=== PATIENT | female | born 1980 | race Caucasian/White ===

== ENCOUNTER 2022-03-21 16:52 | Inpatient (IN) | payer SELFPAY ==
[~2022-03-21 16:52] MED LIST: Iopamidol 370 76% 100 ML VIAL ONE
[2022-03-21 17:48] LABS: #Basophils 0.1 10x3/uL (0.0-0.2); #Monocytes 0.8 10x3/uL (0.0-1.1); #Neutrophils 4.7 10x3/uL (1.5-8.4); %Basophils 0.7 % (0.0-2.0); %Eosinophils 0.5 % (0.0-6.0); %Lymphocytes 23.5 % (18.0-47.0); %Monocytes 10.6 % (0.0-10.0); %Neutrophils 64.4 % (40.0-75.0); Hemoglobin 13.7 g/dL (12.0-15.5); Mean Corpuscular HGB CONC 34.9 g/dL (32.0-36.0); Mean Corpuscular Hemoglobin 29.3 pg (27.0-33.0); Mean Corpuscular Volume 84.2 fl (81.6-98.3); Mean Platelet Volume 10.3 fl (7.4-10.4); Platelet Count 301 10x3/uL (150-450); RBC Distribution Width 12.6 % (11.5-14.5); Red Blood Cell (RBC) Count 4.67 10x6/uL (3.90-5.03); White Blood Cell (WBC) Count 7.3 10x3/uL (3.5-10.5)
[2022-03-21 18:04] LABS: ALT (SGPT) 57 U/L (8-55); AST (SGOT) 33 U/L (5-34); Albumin 4.3 g/dL (3.5-5.0); Alkaline Phosphatase 81 U/L (40-110); Anion Gap 13 mmol/L (10-20); BUN (Urea Nitrogen) 11 mg/dL (7.0-18.7); Bilirubin, Total 0.7 mg/dL (0.2-1.2); Calc. Creatinine Clearance 0 mL/min (70-130); Calcium 9.4 mg/dL (7.8-10.44); Carbon Dioxide 23 mmol/L (22-29); Chloride 108 mmol/L (98-107); Estimated GFR 95; Globulin 3.3 g/dL (2.4-3.5); Glucose 97 mg/dL (70-105); Lipase 33 U/L (8-78); Potassium 3.5 mmol/L (3.5-5.1); Protein, Total 7.6 g/dL (6.0-8.3); Sodium 140 mmol/L (136-145)
[2022-03-21 18:29] LABS: CKMB 1.9 ng/mL (0-6.6)
[2022-03-21 18:40] LABS: BHCG - Serum Negative (NEGATIVE); Pregs Control Background? CLEAR/WHITE (CLR/WHITE); Pregs Control Bar Appear? YES (CONTROL BAR)
[2022-03-21] MEDS ORDERED: Aspirin Chewable 81 MG TAB ONE (18:53)
[2022-03-21] MEDS ORDERED: Ondansetron PF 4 MG/2 ML Vial ONE (18:53)
[2022-03-21] MEDS ORDERED: Fentanyl 100 MCG/2 ML VIAL ONE (18:54)
[2022-03-21] MEDS ORDERED: Enoxaparin Sodium 80 MG/0.8 ML SYRINGE ONE (18:56)
[2022-03-21] MEDS ORDERED: HYDROcodone/Acetaminophen 5/325 mg Tablet PO PRN (20:22)
[2022-03-21] MEDS ORDERED: Senokot S 8.6-50 MG TAB PO PRN (20:22)
[2022-03-21] MEDS ORDERED: Calcium Carbonate 500 MG ChewTAB PO PRN (20:22)
[2022-03-21] MEDS ORDERED: Acetaminophen 325 MG TAB PO PRN (20:22)
[2022-03-21] MEDS ORDERED: Guaifenesin DM 100-10/5 ML UDCUP PO PRN (20:22)
[2022-03-21] MEDS ORDERED: Zolpidem Tartrate 5 MG TAB PO PRN (20:22)
[2022-03-21] MEDS ORDERED: Ondansetron PF 4 MG/2 ML Vial IVP PRN (20:22)
[2022-03-21] MEDS ORDERED: Nitroglycerin 0.4 MG TAB (25 Tab Bottle) SL PRN (20:24)
[2022-03-21 20:40] LABS: Acetaminophen Less than 10.0 mcg/mL (10.0-30.0); Alcohol Less than 10 mg/dL (Less than 10); Salicylate Less than 8.0 mg/dL (15.0-30.0)
[2022-03-21 21:07] LABS: SARS-CoV-2 NAA Rapid Test Not Detected (NotDetected)
[2022-03-21 22:43] VITALS: BMI 45.4
[2022-03-21] MEDS ORDERED: Prazosin HCl 1 MG CAP PO SCH (23:00)
[2022-03-21] MEDS ORDERED: Metoprolol Tartrate 25 MG TAB PO SCH (23:00)
[2022-03-21] MEDS ORDERED: Lactated Ringer's 1,000 ML IV SCH (23:00)
[2022-03-21] MEDS ORDERED: Famotidine/PF 20 mg/2ml Vial SLOW IVP SCH (23:00)
[2022-03-21] MEDS ORDERED: Lithium Carbonate 150 MG CAP PO SCH (23:00)
[2022-03-21] MEDS: Morphine 2 MG/ML VIAL SLOW IVP PRN (23:26)
[2022-03-22 00:11] LABS: Troponin I 2.383 ng/mL (< 0.028)
[2022-03-22] MEDS ORDERED: FLU VACC QS2022-23(6MOS UP)/PF 60 MCG/0.5 ML SYRINGE IM ONE (01:45)
[2022-03-22 05:32] LABS: #Eosinphils 0.1 10x3/uL (0.0-0.5); #Monocytes 0.7 10x3/uL (0.0-1.1); #Neutrophils 2.8 10x3/uL (1.5-8.4); %Basophils 0.7 % (0.0-2.0); %Eosinophils 1.5 % (0.0-6.0); %Lymphocytes 37.1 % (18.0-47.0); %Neutrophils 48.4 % (40.0-75.0); ALT (SGPT) 47 U/L (8-55); AST (SGOT) 23 U/L (5-34); Albumin 3.6 g/dL (3.5-5.0); Alkaline Phosphatase 65 U/L (40-110); Anion Gap 10 mmol/L (10-20); BUN (Urea Nitrogen) 11 mg/dL (7.0-18.7); Bilirubin, Total 0.6 mg/dL (0.2-1.2); Calc. Creatinine Clearance 252 mL/min (70-130); Calcium 8.7 mg/dL (7.8-10.44); Carbon Dioxide 26 mmol/L (22-29); Cardiac Risk 3.4 (Less than 4.5); Chloride 109 mmol/L (98-107); Cholesterol 99 mg/dl (< 200 Desired); Estimated GFR 101; Globulin 2.8 g/dL (2.4-3.5); Glucose 86 mg/dL (70-105); HDL Cholesterol 29 mg/dL (>60 Neg Risk); LDL Cholesterol, Calculated 60 mg/dL; Mean Corpuscular HGB CONC 34.1 g/dL (32.0-36.0); Mean Corpuscular Hemoglobin 29.3 pg (27.0-33.0); Mean Corpuscular Volume 85.9 fl (81.6-98.3); Mean Platelet Volume 10.4 fl (7.4-10.4); Platelet Count 262 10x3/uL (150-450); Potassium 3.2 mmol/L (3.5-5.1); Protein, Total 6.4 g/dL (6.0-8.3); RBC Distribution Width 12.7 % (11.5-14.5); Sodium 142 mmol/L (136-145); Triglycerides 50 mg/dL (Less than 150); White Blood Cell (WBC) Count 5.8 10x3/uL (3.5-10.5)
[2022-03-22] MEDS: Morphine 2 MG/ML VIAL SLOW IVP PRN ×2 (05:43→17:45)
[2022-03-22] MEDS ORDERED: Potassium Chloride 20 MEQ TAB PO SCH (06:00)
[2022-03-22 06:19] LABS: CKMB 2.2 ng/mL (0-6.6)
[2022-03-22] MEDS ORDERED: Aripiprazole 2 MG TAB PO SCH ×2 (09:00→21:00)
[2022-03-22] MEDS ORDERED: Lithium Carbonate 150 MG CAP PO SCH ×2 (09:00→09:30)
[2022-03-22] MEDS ORDERED: Prazosin HCl 1 MG CAP PO SCH ×2 (09:00→21:00)
[2022-03-22] MEDS: Enoxaparin Sodium 80 MG/0.8 ML SYRINGE SC SCH ×2 (10:29→20:46)
[2022-03-22] MEDS: Metoprolol Tartrate 25 MG TAB PO SCH ×2 (10:32→22:30)
[2022-03-22] MEDS: Aspirin 81 mg Enteric Coated Tablet PO SCH (10:33)
[2022-03-22] MEDS: Famotidine/PF 20 mg/2ml Vial SLOW IVP SCH ×2 (10:33→21:24)
[2022-03-22] MEDS ORDERED: Communication Order-Pharmacy FS SCH (14:45)
[2022-03-23 04:59] LABS: INR-International Normal Ratio 1.1; PTT 26.8 sec (22.0-33.0); Prothrombin Time 11.5 sec (9.5-12.1)
[2022-03-23 05:04] LABS: ALT (SGPT) 39 U/L (8-55); AST (SGOT) 17 U/L (5-34); Albumin 3.9 g/dL (3.5-5.0); Alkaline Phosphatase 68 U/L (40-110); Anion Gap 13 mmol/L (10-20); BUN (Urea Nitrogen) 8 mg/dL (7.0-18.7); Bilirubin, Total 0.7 mg/dL (0.2-1.2); Calc. Creatinine Clearance 262 mL/min (70-130); Carbon Dioxide 22 mmol/L (22-29); Chloride 110 mmol/L (98-107); Estimated GFR 106; Glucose 89 mg/dL (70-105); Potassium 3.7 mmol/L (3.5-5.1); Protein, Total 6.9 g/dL (6.0-8.3); Sodium 141 mmol/L (136-145)
[2022-03-23 05:10] LABS: #Eosinphils 0.1 10x3/uL (0.0-0.5); #Monocytes 0.5 10x3/uL (0.0-1.1); #Neutrophils 2.8 10x3/uL (1.5-8.4); %Basophils 0.5 % (0.0-2.0); %Eosinophils 1.6 % (0.0-6.0); %Lymphocytes 37.4 % (18.0-47.0); %Monocytes 9.2 % (0.0-10.0); %Neutrophils 51.1 % (40.0-75.0); Hemoglobin 12.5 g/dL (12.0-15.5); Mean Corpuscular HGB CONC 33.1 g/dL (32.0-36.0); Mean Corpuscular Hemoglobin 28.7 pg (27.0-33.0); Mean Corpuscular Volume 86.9 fl (81.6-98.3); Mean Platelet Volume 10.6 fl (7.4-10.4); Platelet Count 261 10x3/uL (150-450); RBC Distribution Width 12.7 % (11.5-14.5); Red Blood Cell (RBC) Count 4.35 10x6/uL (3.90-5.03); White Blood Cell (WBC) Count 5.6 10x3/uL (3.5-10.5)
[2022-03-23] MEDS: Aspirin 81 mg Enteric Coated Tablet PO SCH (06:04)
[2022-03-23] MEDS: Metoprolol Tartrate 25 MG TAB PO SCH (06:05)
[2022-03-23] MEDS: Famotidine/PF 20 mg/2ml Vial SLOW IVP SCH (06:06)
[2022-03-23] MEDS ORDERED: Heparin 10,000 UNITS/ 10 ML VIAL ONE (06:25)
[2022-03-23] MEDS ORDERED: Lidocaine 1% MPF 2 ML VIAL ONE (06:25)
[2022-03-23] MEDS ORDERED: Nitroglycerin 50 MG/250 ML BOT 250 ML ONE (06:25)
[2022-03-23] MEDS ORDERED: Verapamil 5 MG/2 ML VIAL ONE (06:26)
[2022-03-23] MEDS ORDERED: Adenosine 6 MG/2 ML VIAL ONE (06:26)
[2022-03-23] MEDS ORDERED: Bivalirudin 250 MG VIAL ONE (06:27)
[2022-03-23] MEDS ORDERED: Sodium Chloride 0.9% 1,000 ML ONE (06:27)
[2022-03-23] MEDS ORDERED: Midazolam HCl 2 mg/2 ml Vial ONE (07:04)
[2022-03-23] MEDS ORDERED: Fentanyl 100 MCG/2 ML VIAL ONE (07:04)
[2022-03-23] MEDS ORDERED: Acetaminophen/Codeine 30-300mg Tablet PO PRN ×2 (07:58)
[2022-03-23] MEDS ORDERED: Sodium Chloride 0.9% 200 ML IV PRN (07:58)
[2022-03-23] MEDS ORDERED: Nitroglycerin 0.4 MG TAB (25 Tab Bottle) SL PRN (07:58)
[2022-03-23] MEDS ORDERED: Carvedilol 3.125 MG TAB PO SCH (08:00)
[2022-03-23] MEDS ORDERED: Lisinopril 2.5 MG TAB PO SCH (09:00)
[2022-03-23] MEDS ORDERED: Lithium Carbonate 150 MG CAP PO SCH (09:00)
[2022-03-23] MEDS ORDERED: Iopamidol 300 61% 100 ML VIAL FS ONE (14:16)
[2022-03-23] MEDS ORDERED: Iopamidol 300 61% 50 ML VIAL FS ONE (14:16)
[2022-03-23 17:28] VITALS: BP 134/64; TEMP 97.9
[2022-03-24] MEDS ORDERED: Lisinopril 5 MG TAB PO SCH (09:00)
== END 2022-03-23 18:00 | disposition home or self-care (01) | DRG 444 ==
LOC: CSHERS 16:52 → CSHTELE 22:24 → OBSVTOIN 22:25
PROVIDERS: ADMIT Student in an Organized Health Care Education/Training Program; ATTEND Internal Medicine
PROC: 4A023N7 Measurement of Cardiac Sampling and Pressure, Left Heart, Percutaneous Approach (ICD-10-PCS; principal; 2022-03-23)
PROC: B2111ZZ Fluoroscopy of Multiple Coronary Arteries using Low Osmolar Contrast (ICD-10-PCS; 2022-03-23)
PROC: B2151ZZ Fluoroscopy of Left Heart using Low Osmolar Contrast (ICD-10-PCS; 2022-03-23)
DX: K80.70 Calculus of gallbladder and bile duct without cholecystitis without obstruction (principal); I21.A1 Myocardial infarction type 2; I51.81 Takotsubo syndrome; Z68.42 Body mass index [BMI] 45.0-49.9, adult; F41.9 Anxiety disorder, unspecified; G43.909 Migraine, unspecified, not intractable, without status migrainosus; K76.0 Fatty (change of) liver, not elsewhere classified; E66.01 Morbid (severe) obesity due to excess calories; I25.10 Atherosclerotic heart disease of native coronary artery without angina pectoris; Z20.822 Contact with and (suspected) exposure to COVID-19; R79.89 Other specified abnormal findings of blood chemistry; F31.9 Bipolar disorder, unspecified; Z88.0 Allergy status to penicillin; Z71.6 Tobacco abuse counseling; Z90.89 Acquired absence of other organs; Z82.49 Family history of ischemic heart disease and other diseases of the circulatory system; Z83.3 Family history of diabetes mellitus; Z79.899 Other long term (current) drug therapy; Z87.891 Personal history of nicotine dependence
CPT/HCPCS: 36415; 71045; 71275; 76705; 80053; 80061; 80307; 82550; 82553; 83690; 84484; 84703; 85025; 85379; 85610; 85730; 93005; 93306; 93458; 93970; 96372; 96374; 96375; 97139; 99152; 99153; C1769; C1894; J0153; J0583; J1644; J1650; J2250; J2270; J2405; J3010; J7050; J7120; Q9967; S0028; U0002

== ENCOUNTER 2023-10-05 07:12 | Outpatient (CLI) | payer MEDICAID | END 2023-10-05 07:13 | disposition home or self-care (01) | LOC: CSHULT 07:12 | PROVIDERS: ATTEND Family Medicine | DX: R11.2 Nausea with vomiting, unspecified (principal); K80.20 Calculus of gallbladder without cholecystitis without obstruction; K82.8 Other specified diseases of gallbladder | CPT/HCPCS: 76705 ==